=== PATIENT | female | born 1990 | race Caucasian/White ===

== ENCOUNTER 2017-02-18 16:36 | Emergency (ER) | payer MEDICAID | END 2017-02-18 18:42 | disposition home or self-care (01) | LOC: D.ER 16:36 | DX: J20.9 Acute bronchitis, unspecified (principal); J06.9 Acute upper respiratory infection, unspecified ==

== ENCOUNTER → 2017-03-26 10:45 | Outpatient (CLI) | payer BC, MEDICAID | END | disposition home or self-care (01) | LOC: D.LDO 10:45 | DX: Z34.90 Encounter for supervision of normal pregnancy, unspecified, unspecified trimester (principal) ==

== ENCOUNTER → 2017-05-05 02:48 | Outpatient (CLI) | payer BC, MEDICAID ==
[~2017-05-05 02:48] MED LIST: PRENATAL COMPLE1 TAB PO
[2017-05-05 03:32] LABS: APPEARANCE HAZY (CLEAR); BILIRUBIN NEGATIVE (NEGATIVE); COLOR YELLOW (YELLOW); GLUCOSE NEGATIVE (NEGATIVE); KETONE MODERATE mg/dL (NEGATIVE); LEUKOCYTE ESTERASE 2+ (NEGATIVE); NITRITE NEGATIVE (NEGATIVE); PROTEIN NEGATIVE (NEGATIVE); SPECIFIC GRAVITY 1.015 (1.005-1.020); UROBILINOGEN NORMAL (NORMAL)
[2017-05-05 03:34] LABS: BACTERIA MODERATE /hpf (NONE SEEN); EPITHELIAL CELLS 0-5 /hpf (0-5); RED CELLS - URINE 0-5 /hpf (0-5)
[2017-05-06 05:30] VITALS: BMI 36.1
== END | disposition home or self-care (01) ==
LOC: D.LDO 02:48
PROVIDERS: Obstetrics & Gynecology
DX: O26.893 Other specified pregnancy related conditions, third trimester (principal); Z3A.38 38 weeks gestation of pregnancy; R10.9 Unspecified abdominal pain

== ENCOUNTER 2017-05-06 05:04 | Inpatient (IN) | payer BC, MEDICAID ==
[~2017-05-06] VITALS: Ht 165.1 cm; Wt 98.4 kg
[2017-05-06] VITALS (13 sets, daily range): BP systolic 110–149; BP diastolic 56–90; Ht 165.1 cm; Wt 98.4 kg
[2017-05-06] MEDS ORDERED: PRENATAL COMPLE1 TAB PO (05:29)
[2017-05-06 05:55] LABS: HEMATOCRIT 36.4 % (36.0-48.0); HEMOGLOBIN 12.2 g/dL (12-16); MCH 28.8 pg (26.0-34.0); MCHC 33.5 g/dL (31.0-37.0); MCV 86.1 fL (80.0-100.0); MEAN PLATELET VOLUME 9.9 fL (7.4-10.4); RBC 4.23 10x6/uL (4.00-5.40); RDW 13.5 % (11.5-14.5); WBC 5.4 10x3/uL (4.8-10.8)
[2017-05-06 06:09] LABS: UDS - AMPHET NEGATIVE QUAL (NEGATIVE); UDS - BARB NEGATIVE QUAL (NEGATIVE); UDS - BENZO NEGATIVE QUAL (NEGATIVE); UDS - COCAINE NEGATIVE QUAL (NEGATIVE); UDS - METH NEGATIVE QUAL (NEGATIVE); UDS - OPIATE NEGATIVE QUAL (NEGATIVE); UDS - PCP NEGATIVE QUAL (NEGATIVE); UDS - THC NEGATIVE QUAL (NEGATIVE)
[2017-05-06 07:23] LABS: APPEARANCE CLOUDY (CLEAR); COLOR YELLOW (YELLOW)
[2017-05-06 07:24] LABS: BILIRUBIN NEGATIVE (NEGATIVE); GLUCOSE NEGATIVE (NEGATIVE); KETONE NEGATIVE (NEGATIVE); LEUKOCYTE ESTERASE 2+ (NEGATIVE); NITRITE NEGATIVE (NEGATIVE); PROTEIN TRACE mg/dL (NEGATIVE); UROBILINOGEN NORMAL (NORMAL)
[2017-05-06 07:26] LABS: BACTERIA FEW /hpf (NONE SEEN); EPITHELIAL CELLS 0-5 /hpf (0-5); RED CELLS - URINE 0-5 /hpf (0-5)
[2017-05-06 11:19] LABS: APPEARANCE HAZY (CLEAR); COLOR ORANGE (YELLOW)
[2017-05-06 11:20] LABS: BILIRUBIN NEGATIVE (NEGATIVE); GLUCOSE NEGATIVE (NEGATIVE); KETONE SMALL mg/dL (NEGATIVE); LEUKOCYTE ESTERASE NEGATIVE (NEGATIVE); NITRITE NEGATIVE (NEGATIVE); PROTEIN NEGATIVE (NEGATIVE); UROBILINOGEN NORMAL (NORMAL)
[2017-05-06 11:21] LABS: WHITE CELLS - URINE NSEEN /hpf (0-5)
[2017-05-06 11:22] LABS: EPITHELIAL CELLS RARE /hpf (0-5); RED CELLS - URINE >50 /hpf (0-5)
[2017-05-06 11:23] LABS: BACTERIA FEW /hpf (NONE SEEN)
--- NOTE | 2017-05-06 13:08 | NUR ---
BABY BORN AT 1239
--- NOTE | 2017-05-06 14:00 | NUR ---
PT WAS RECEIVED FROM RECOVERY POST C-SEC. GEN- SHE IS DROSY BUT AWAKENS EASILY. LUNGS- CLEAR. HEART- RRR. ABD- SOFT WITH TENDERNESS. FUNDUS FIRM. PERINEUMJ WITH SMALL LOCIA RUBRA. INCISION CLEAN AND DRY. LOW TRANSVERSE INCISION. EXT- WITH SCD'S THES WERE HOOKED TO PUMP. RODRIGUEZ INTACT WITH DARK GOLD URINE. IV PATENT R WRIST WITH NS WITH PIT INFUSING AT 125CC HR. DILAUDID SUPERVISOR WRAPPING ROOM INITIATED. BED IS LOW. SIDE RAILS UP X 2 AND CALL LIGHT IN REACH. PT INSTRUCTED ON CLEAR LIQUIDS, IC LANDRY AND TRUNING, COUGHING AND DEEP BREATHING.
--- NOTE | 2017-05-06 15:00 | NUR ---
PT IS RESTING . OFFERS NO COMPLAINTS. SLEEPING OFF AND ON. FUNDUS FIRM STILL WITH SMALL LOCAI RUBRA.
--- NOTE | 2017-05-06 16:15 | NUR ---
PT IS RESTING. SHE HAS BEEN BABY. BABY LATCHED ON WELL. RODRIGUEZ INTACT. IV PATENT.
--- NOTE | 2017-05-06 17:15 | NUR ---
PT WAS ROLLED TO HER SIDE AND PADS WERE CHANGED AND BUTTOCKS AND PERINEAL AREA WASHED WITH WASHCLOTH AND FOAM JOINT YARNER. NEW PADS WERE PLACED. SHE HAD MODERATE LOCIA. SHE HAD ONE CLOT AND THEN HAD WHAT APPEARED TO BE DILUTED THINNED OUT BLOOD ON PAD. FUNDUS IS FIRM AND VSS. DEV SIERRA FROM L&D ASSISTED ME WITH CHANGE. WE WILL REVIEW [facility]&H TONIGHT. GOWN CHANGED.
--- NOTE | 2017-05-06 18:28 | NUR ---
PT C/O HEADACHE AND WOULD LIKE SOMETHING FOR THIS. TOLD HER I WOULD CHECK.
[2017-05-06 18:43] LABS: BASOPHILS 0.1 % (0-2); EOSINOPHILS 0.1 % (0-7); HEMATOCRIT 30.8 % (36.0-48.0); HEMOGLOBIN 10.3 g/dL (12-16); IMMATURE GRANULOCYTES 0.2 % (0-5); MCH 28.7 pg (26.0-34.0); MCHC 33.4 g/dL (31.0-37.0); MCV 85.8 fL (80.0-100.0); MEAN PLATELET VOLUME 9.7 fL (7.4-10.4); MONOCYTES 5.1 % (2-11); NEUTROPHILS 83.5 % (40-80); PLATELET COUNT 201 10x3/uL (130-400); RBC 3.59 10x6/uL (4.00-5.40); RDW 13.1 % (11.5-14.5); WBC 11.3 10x3/uL (4.8-10.8)
--- NOTE | 2017-05-06 19:32 | NUR ---
ASSESSMENT PER FLOW SHEET, VS OBTAINED, IV IN RIGHT WRIST INTACT WITH NO REDNESS OR EDEMA INFUSING VIA PUMP NS WITH PITOCIN AT 125 ML/HR, DILAUDID GLUELINE WORKER TO DELIVER 0.2MG/10MINST PER PTS DEMAND FOR PAIN CONTROL, PT RATES INC PAIN AND ROACH 04/04, PT INST ON PUSHING GLUELINE WORKER BUTTON AT THIS TIME, WILL ADM TORADOL, FF, ML, U/1, LITE BLEEDING NOTED WITH NO CLOTS, MARION CARE DONE WITH WET WARM WASH CLOTHS, MARION PAD CHANGED, BIKINI INC WITH SMALL DRESSING CDI WITH SLIGHT DRIED DRAINAGE NOTED, FRESH ICE PACK TO ABD, RODRIGUEZ CATH INTACT, DRAINING DARK YELLOW URINE, EMPTIED 250 MLS FROM RODRIGUEZ CHAMBER TO RODRIGUEZ BAG, PT DENIES FLATUS, SCD'S ON AND WORKING PROPERLY, BABY TO ROOM VIA OPEN CRIB CART PER NSY NURSE
--- NOTE | 2017-05-06 19:51 | NUR ---
ADM TORADOL SIVP PER MD ORDERS, SEE EMAR, CUP OF ICE PROVIDED, FOB HOLDING BABY
--- NOTE | 2017-05-06 20:40 | NUR ---
PT TALKING ON PHONE TO HER DAD, FOTawny REPORTS PT STATED TO HIM THAT SHE WAS FEELING BETTER, INFORMED HIM TO LET HER KNOW IF SHE NEEDS ANYTHING TO USE THE CALL AND THAT I WILL BE BACK AROUND 9PM TO CHECK ON HER
--- NOTE | 2017-05-06 21:21 | NUR ---
PT HOLDING BABY, DENIES NEEDS OR PAIN, STATES "YOU KNOW, I DON'T HAVE ANY PAIN RIGHT NOW, FOB AT BEDSIDE
--- NOTE | 2017-05-06 23:08 | NUR ---
PT AWAKE, VS OBTAINED, NEW BAG OF NS WITH PITOCIN HUNG VIA PUMP INFUSING AT 125 ML/HR PER MD ORDERS, SEE EMAR, EMPTIED 600 MLS OF DARK YELLOW URINE FROM RODRIGUEZ CATH, MARION CARE DONE WITH WET WARM WASH CLOTHS, LITE-MOD BLEEDING NOTED WITH NO CLOTS, BLUE CHUX AND MARION PAD CHANGED, FRESH ICE PACK TO ABD, PT DENIES NEEDS OR PAIN AT THIS TIME, FOB AND BABY AT BEDSIDE
--- NOTE | 2017-05-07 01:00 | NUR ---
PT READY TO GET SOME REST, BABY TO NSY VIA OPEN CRIB CART PER THIS RN, PT DENIES FURTHER NEEDS OR PAIN AT THIS TIME, FOB AT BEDSIDE
--- NOTE | 2017-05-07 03:30 | NUR ---
PT RESTING WITH EYES CLOSED, RESP QUIET, NO DISTRESS NOTED, LEFT UNDISTURBED AT THIS TIME, FOB ASLEEP IN RECLINER
[2017-05-07 05:08] VITALS: BP 125/70
--- NOTE | 2017-05-07 05:08 | NUR ---
PT AWAKE, VS OBTAINED, I&O'S COLLECTED, LITE BLEEDING NOTED WITH NO CLOTS, MARION CARE DONE WITH WET WARM WASH CLOTHS, BLUE CHUX AND MARION PAD CHANGED, FRESH ICE PACK TO ABD, PT REQUESTED AND SERVED FRESH H20, ADM TORADOL SIVP PER MD ORDERS FOR C/O ROACH, SEE EMAR, SCD'S CONTINUE ON AND WORKING PROPERLY, BED IN LOW POSITION, SIDE RAILS X 2, CALL LIGHT IN REACH, S/O ASLEEP IN RECLINER
[2017-05-07 05:35] LABS: BASOPHILS 0.1 % (0-2); EOSINOPHILS 0.6 % (0-7); HEMOGLOBIN 9.5 g/dL (12-16); IMMATURE GRANULOCYTES 0.2 % (0-5); LYMPHOCYTES 18.6 % (15-50); MCH 29.2 pg (26.0-34.0); MCHC 33.9 g/dL (31.0-37.0); MCV 86.2 fL (80.0-100.0); MEAN PLATELET VOLUME 9.8 fL (7.4-10.4); MONOCYTES 6.6 % (2-11); NEUTROPHILS 73.9 % (40-80); PLATELET COUNT 175 10x3/uL (130-400); RBC 3.25 10x6/uL (4.00-5.40); RDW 13.4 % (11.5-14.5)
[2017-05-07 05:36] LABS: WBC 8.3 10x3/uL (4.8-10.8)
--- NOTE | 2017-05-07 05:57 | NUR ---
DR CRAWLEY NOTIFIED, REPORT OF LAB RESULTS, ORDERS TO TRANSFUSE 2 UNITS OF PRBC
--- NOTE | 2017-05-07 06:00 | NUR ---
LAB NOTIFIED FOR ORDER OF 2 UNITS OF PRBC
--- NOTE | 2017-05-07 06:15 | NUR ---
THIS RN AND RAHUL LOPEZ RN IN ROOM TO TALK TO PT REGARDING BLOOD TRANSFUSION, RAHUL LOPEZ RN FLUSHED SALINE LOCK IN RIGHT WRIST WITH 10 MLS OF NS, REPORTS NO DIFFICULTY, THIS RN CONVERTED SALINE LOCK TO IV, HUNG NS TO INFUSE AT KVO AT THIS TIME, PT VERBALIZES UNDERSTANDING OF BLOOD TRANSFUSION, FOB AND BABY AT BEDSIDE
--- NOTE | 2017-05-07 07:00 | NUR ---
SHIFT REPORT TO ELICEO MALLOY RN
[2017-05-07 07:30] VITALS: BP 118/64
--- NOTE | 2017-05-07 07:30 | NUR ---
PT IS RECEIVED LYING IN BED. VSS. GEN- AWAKE AND ALERT. PT IS BABY, LUNGS- CLEAR. HEART RRR. ABDOMEN- SOFT, TENDER. BS+ BIKINI LINE INCISION WITH STERI STRIPS. CLEAN DRY AND INTACT. MODERATE LOCIA RUBRA. EXT- SCD'S INTACT. NO EDEMA. RODRIGUEZ INTACT. WITH GOOD URINE OUTPUT. IV INTACT R WRIST. PATENT. BED IS LOW, SIDE RAILS UP X 2 AND CALL LIGHT IN REACH.
[2017-05-07 07:31] LABS: RAPID PLASMA REAGIN Non Reactive (Non Reactive)
--- NOTE | 2017-05-07 09:01 | NUR ---
PTS IV WAS SALINE LOCKED AND INSPECTION CLERK D'CD.
--- NOTE | 2017-05-07 10:00 | NUR ---
FOLETY CATH REMOVED. BALOON DEFLATED AND REMOVED. 600 CC URINE OUTPUT.
--- NOTE | 2017-05-07 11:13 | NUR ---
PT ASSISTED TO BATHROOM TO VOID. VOIDED 200 CC BLOODY URINE. PT NOW IN SHOWER. INSTRUCTED ON INCISION CARE. LINENS CHANGED.
--- NOTE | 2017-05-07 11:31 | NUR ---
PT IS RESTING IN BED. OFFERS NO COMPLAINTS.
--- NOTE | 2017-05-07 11:34 | NUR ---
PT IS OUT OF THE SHOWER. ASSISTED PT GETTING DRESSED AND PT IS BACK TO BED. REQUESTED PAIN MED. MOTRIN 600 MG PO AND NORCO 10/325 GIVEN PO. BED IS LOW, SIDE RAILS UP X 2 AND CALL LIGHT IN REACH.
--- NOTE | 2017-05-07 12:30 | NUR ---
PT IS RESTING IN BED. OFFERS NO COMPLAINTS. HER PAIN IS UNDER CONTROL NOW SHE STATES. PAIN IS ABOUT A 1-2. BED IS LOW, SIDE RAILS UP X 2 AND CALL LIGHT IN REACH.
--- NOTE | 2017-05-07 13:30 | NUR ---
PT IS SLEEPING.
--- NOTE | 2017-05-07 14:30 | NUR ---
INCISION WITH MAIKEL. CLEAN AND DRY. SMALL LOCIA RUBRA. FUNDUS FIRM.
--- NOTE | 2017-05-07 15:56 | NUR ---
PT IS LYING IN BED HOLDING BABY. SHE OFFERS NO COMPLAINTS. BED IS LOW, SIDE RAILS UP X 2 AND CALL LIGHT IN REACH.
--- NOTE | 2017-05-07 17:28 | NUR ---
PT REQUESTED PAIN MED. NORCO GIVEN PO. STATES HER PAIN IS ABOUT A 4-5. BED IS LOW, SIDE RAILS UP X 2 AND CALL LIGHT IN REACH.
[2017-05-07 19:55] VITALS: BP 113/63
--- NOTE | 2017-05-07 19:55 | NUR ---
PT RECEIVED SITTING UP IN BED AAOX3 WATCHING TV AT THIS TIME AND HOLDING INFANT. VSS. PT RATES PAIN 2/10. S/L NOTED TO LEFT HAND. DRESSING CDI. HEART RRR. LUNG SOUNDS CLEAR BILATERALLY. BOWEL SOUNDS ACTIVE X4 QUADRENTS. ABDOMEN SOFT WITH TENDERNESS. LOW TRANSVERSE INCISION NOTED TO ABDOMEN WITH MAIKEL. NO REDNESS, SWELLING, OR PURULENT DRAINAGE NOTED. FUNDUS FIRM AND MIDLINE U/2. PT STATES LOCHIA HAS BEEN LIGHT THROUGHOUT THE DAY. PEDAL PULSES EQUAL BILATERALLY. PT FIXING TO GET UP AT THIS TIME TO USE RESTROOM. REQUESTS LIGHT BE TURNED OFF. DENIES OTHER NEEDS. BED LOW. PHONE AND CALL LIGHT IN REACH. SRX2.
--- NOTE | 2017-05-07 20:37 | NUR ---
PT LYING IN BED WITH ON CHEST WATCHING TV AT THIS TIME. DENIES NEEDS. BED LOW. PHONE AND CALL LIGHT IN REACH. SRX2.
--- NOTE | 2017-05-07 22:06 | NUR ---
PT C/O PAIN 03/04. ADMINISTERED NORCO PO AND MOTRIN PO PER ORDERS AT THIS TIME. PT REQUESTS ICE WATER. DENIES OTHER NEEDS. BED LOW. PHONE AND CALL LIGHT IN REACH. SRX2.
[2017-05-07 23:25] VITALS: BP 131/86; BP 99/50
--- NOTE | 2017-05-07 23:25 | NUR ---
PT STANDING UP LOOKING AT IN BASS[place]ET. VSS. PT DENIES NEEDS. BED LOW. PHONE AND CALL LIGHT IN REACH. SRX2.
--- NOTE | 2017-05-08 01:21 | NUR ---
PT RESTING QUIETLY AT THIS TIME WITH EYES CLOSED. RESPIRATIONS EVEN, NON-LABORED. NO ACUTE DISTRESS NOTED AT THIS TIME. BED LOW. PHONE AND CALL LIGHT IN REACH. SRX2.
[2017-05-08 03:44] VITALS: BP 116/77
--- NOTE | 2017-05-08 03:44 | NUR ---
PT SITTING UP IN BED HOLDING AT THIS TIME. PT DENIES NEEDS. BED LOW. PHONE AND CALL LIGHT IN REACH. SRX2.
[2017-05-08 07:15] VITALS: BP 104/49
[2017-05-08 07:30] VITALS: BP 127/77
--- NOTE | 2017-05-08 07:30 | NUR ---
PT WAS RECEIVED LYING IN BED. BABY AT BEDSIDE. PT OFFERS NO COMPLAINTS. GEN- AWAKE AND ALERT. LUNGS- CLEAR. HEART- RRR. ABD- SOFT BS+ LOW TRANSVERSE INCISION IS CLEAN AND DRY. MAIKEL INTACT. LE NO EDEMA. SALINE LOCK R WRIST- PATENT. PT IS VOIDING WITHOUT DIFFICULTY. BED IS LOW, SIDE RAILS UP X 2 AND CALL LIGHT IN REACH.
--- NOTE | 2017-05-08 09:00 | NUR ---
PT REQUEST PAIN MED. NORCO 10/325 GIVEN PO. SHE IS BABY.
[2017-05-08] MEDS ORDERED: HYDROCODONE-APA1 TAB PO (09:50)
[2017-05-08] MEDS ORDERED: IBUPROFEN600 MG PO (09:50)
--- NOTE | 2017-05-08 10:27 | NUR ---
PT STATES THAT SHE IS HUNGRY. GAVE HER A TURKEY SANDWICH TO EAT. SHE OFFERS NO OTHER COMPLAINTS.
--- NOTE | 2017-05-08 11:45 | NUR ---
PT IS SLEEPING. BED IS LOW, SIDE RAILS UP X 2 AND CALL LIGHT IN REACH.
--- NOTE | 2017-05-08 12:32 | NUR ---
SALINE LOCK D'CD R WRIST. TIP INTACT.
--- NOTE | 2017-05-08 13:40 | NUR ---
PT WAS TAKEN BY WHEELCHAIR TO HER VEHICLE. PT DISCHARGED.
== END 2017-05-08 13:40 | disposition home or self-care (01) | DRG 766 ==
LOC: D.LD 05:04 → D.WS 05:04
PROVIDERS: ADMIT Obstetrics & Gynecology
PROC: 10D00Z1 Extraction of Products of Conception, Low, Open Approach (ICD-10-PCS; 2017-05-06)
PROC: 3E033VJ Introduction of Other Hormone into Peripheral Vein, Percutaneous Approach (ICD-10-PCS; principal; 2017-05-06 12:00)
DX: O99.824 Streptococcus B carrier state complicating childbirth (principal); Z3A.39 39 weeks gestation of pregnancy; Z37.0 Single live birth; O99.334 Smoking (tobacco) complicating childbirth; O99.324 Drug use complicating childbirth; F12.90 Cannabis use, unspecified, uncomplicated; O69.81X0 Labor and delivery complicated by cord around neck, without compression, not applicable or unspecified

== ENCOUNTER 2017-05-22 19:16 | Emergency (ER) | payer BC, MEDICAID ==
[2017-05-06 05:30] VITALS: BMI 36.1
[~2017-05-22 19:16] MED LIST changes: +HYDROCODONE-APA1 TAB PO; +IBUPROFEN600 MG PO
[2017-05-22 22:56] LABS: BASOPHILS 0.2 % (0-2); EOSINOPHILS 0.9 % (0-7); HEMATOCRIT 34.1 % (36.0-48.0); HEMOGLOBIN 11.2 g/dL (12-16); IMMATURE GRANULOCYTES 0.1 % (0-5); LYMPHOCYTES 15.5 % (15-50); MCH 27.5 pg (26.0-34.0); MCHC 32.8 g/dL (31.0-37.0); MCV 83.6 fL (80.0-100.0); MEAN PLATELET VOLUME 8.5 fL (7.4-10.4); MONOCYTES 1.9 % (2-11); NEUTROPHILS 81.4 % (40-80); PLATELET COUNT 473 10x3/uL (130-400); RBC 4.08 10x6/uL (4.00-5.40); RDW 12.9 % (11.5-14.5); WBC 8.5 10x3/uL (4.8-10.8)
[2017-05-22 23:09] LABS: ALBUMIN 3.1 g/dL (3.4-5.0); ALKALINE PHOSPHATASE 125 U/L (46-116); ALT (SGPT) 25 U/L (10-68); BILIRUBIN - TOTAL 0.26 mg/dL (0.2-1.3); CALC OSMOLALITY 277 mosm/kg (275-300); CALCIUM 8.7 mg/dL (8.5-10.1); CARBON DIOXIDE 25.8 mmol/L (21.0-32.0); CHLORIDE - SERUM 104 mmol/L (98-107); CREATININE - SERUM 0.7 mg/dL (0.6-1.3); GLUCOSE 121 mg/dL (74-106); POTASSIUM - SERUM 3.6 mmol/L (3.5-5.1); PROTEIN - SERUM 7.2 g/dL (6.4-8.2); SODIUM 140 mmol/L (136-145); UREA NITROGEN 8 mg/dL (7-18); eGFR NON AFRICAN AMERICAN > 90 mL/min (90-120)
== END 2017-05-23 00:35 | disposition home or self-care (01) ==
LOC: D.ER 19:16
PROVIDERS: Physician Assistant Medical
DX: R51 Headache (principal); R11.2 Nausea with vomiting, unspecified

== ENCOUNTER 2017-06-25 05:26 | Day surgery (SDC) | payer MEDICAID ==
[2017-06-23 11:02] LABS: BASOPHILS 0.5 % (0-2); EOSINOPHILS 3.7 % (0-7); HEMATOCRIT 37.1 % (36.0-48.0); HEMOGLOBIN 11.9 g/dL (12-16); IMMATURE GRANULOCYTES 0.2 % (0-5); LYMPHOCYTES 33.4 % (15-50); MCH 26.4 pg (26.0-34.0); MCHC 32.1 g/dL (31.0-37.0); MCV 82.3 fL (80.0-100.0); MEAN PLATELET VOLUME 8.9 fL (7.4-10.4); MONOCYTES 5.2 % (2-11); PLATELET COUNT 318 10x3/uL (130-400); RBC 4.51 10x6/uL (4.00-5.40); RDW 13.2 % (11.5-14.5); WBC 6.2 10x3/uL (4.8-10.8)
[2017-06-23 11:13] LABS: CALC OSMOLALITY 278 mosm/kg (275-300); CALCIUM 9.3 mg/dL (8.5-10.1); CARBON DIOXIDE 24.6 mmol/L (21.0-32.0); CHLORIDE - SERUM 105 mmol/L (98-107); CREATININE - SERUM 0.7 mg/dL (0.6-1.3); GLUCOSE 88 mg/dL (74-106); POTASSIUM - SERUM 3.9 mmol/L (3.5-5.1); SODIUM 141 mmol/L (136-145); UREA NITROGEN 9 mg/dL (7-18); eGFR NON AFRICAN AMERICAN > 90 mL/min (90-120)
[2017-06-25 06:01] LABS: HCG URINE NEGATIVE (NEGATIVE)
[2017-06-25 06:13] VITALS: BP 117/71; BMI 32.8
--- NOTE | 2017-07-24 12:56 | OP ---
PATIENT NAME: MAURO JEREZ MEDICAL RECORD: [id number] :91 [facility] DATE: SURGEON: KERVIN HKAN MD DATE OF OPERATION: 06/25/2017 PREOPERATIVE DIAGNOSIS: Multiparity, the patient desires permanent sterility. POSTOPERATIVE DIAGNOSIS: Multiparity, the patient desires permanent sterility. PROCEDURE: Laparoscopic tubal ligation using bipolar cautery. SURGEON: Kervin Khan MD ESTIMATED BLOOD LOSS: Minimal. INTRAVENOUS FLUIDS: Per anesthesia record. FINDINGS: 1. Adhesive disease involving the uterus, bladder and anterior abdominal wall. 2. Grossly normal adnexa bilaterally. COMPLICATIONS: None apparent. SPECIMENS: None. PROCEDURE IN DETAIL: The patient was taken to the operating room where general anesthesia was achieved without difficulty. The patient was then prepped and draped in normal sterile fashion in the dorsal lithotomy position in the [facility]. At this point, the bladder was drained of approximately 100 cc of clear yellow urine. A sponge stick was then placed in the vagina for uterine elevation. A 5-mm skin incision was made in the infraumbilical area and then the 5-mm bladeless trocar was used to enter the intraperitoneal space under direct visualization of the laparoscope. The patient was then insufflated, opening pressure was found to be appropriate for intraperitoneal placement. Upon initial survey of the abdomen, a scar tissue involving the uterus at the previous incisional site in the rectus fascia, was found to inhibit ideal placement of a midline second port, so port was placed in the left lower quadrant under direct visualization of the laparoscope. Under the second port, the Gyrus PK was then used to completely fulgurated approximately 5 cm portion of the mid section of each fallopian tube. Good hemostasis was noted and all tubal involved segments were appeared to be grossly completely desiccated. A survey of the abdomen and pelvis with the laparoscope revealed no other pathology. At this point, the gas was removed and the patient was desufflated and under direct visualization of the laparoscope, no areas of bleeding were noted, following complete removal of the gas. The trocars were removed and the skin repaired with 3-0 Vicryl in an interrupted fashion. Sponge stick was then removed from the vagina. The patient tolerated the procedure well, transferred to postanesthesia recovery stable without incident. TRANSINT:[id number] Voice Confirmation ID: [id number] DOCUMENT ID: [id number] OPERATIVE REPORT [id number] MAURO JEREZ, KERVIN Gomes MD at 1256 CC: [id number] DICTATION DATE: 07/12/17 1539 GREY INSPECTOR: 07/12/17 1617 [facility] 06/25/17 [place] [id number] [place] [id number]
== END 2017-06-25 11:03 | disposition home or self-care (01) ==
LOC: D.OPS 05:26
PROVIDERS: Obstetrics & Gynecology
DX: Z30.2 Encounter for sterilization (principal); F17.200 Nicotine dependence, unspecified, uncomplicated; Z01.812 Encounter for preprocedural laboratory examination

== ENCOUNTER 2017-07-28 09:52 | Emergency (ER) | payer MEDICAID | END 2017-07-28 11:20 | disposition home or self-care (01) | LOC: D.ER 09:52 | DX: H66.91 Otitis media, unspecified, right ear (principal); H92.01 Otalgia, right ear; F17.200 Nicotine dependence, unspecified, uncomplicated ==